=== PATIENT | female | born 1940 | race Caucasian/White ===

== ENCOUNTER 2016-08-01 08:22 | Emergency (ER) | payer MEDICARE, OTHER ==
--- NOTE | 2016-08-01 09:07 | ERNOTE ---
Lower Extremity HPI - General Lower Extremities Pain: knee: left Source: patient Exam Limitations: dementia - Immun/Allergies/Home Medications Immunizations: IMMUNIZATION HX Immunizations Up to Date Yes History of Influenza Vaccine No Hx Pneumococcal Vaccination No Allergies/Adverse Reactions: Allergies Allergy/AdvReac Type Severity Reaction Status Date / Time Sulfa (Sulfonamide Allergy Unknown Verified 08/01/16 08:38 Antibiotics) [Sulfa(Sulfonamide Antibiotics)] cortisone [Cortisone] AdvReac Mild GI UPSET, Verified 08/01/16 08:38 N/V Iodinated Contrast Media - AdvReac Mild GI UPSET Verified 08/01/16 08:38 IV Dye [IV Dye, Iodine Containing Contrast ] iodine AdvReac Mild GI UPSET Verified 08/01/16 08:38 lisinopril AdvReac Mild Cough Verified 08/01/16 08:38 Penicillins AdvReac Mild RASH Verified 08/01/16 08:38 Home Medications: HOME MEDICATIONS Levothyroxine Sodium [Tirosint] 25 mcg PO Q48H 04/20/13 [Last Taken 05/21/14] Losartan Potassium [Cozaar] 50 mg PO BID 04/20/13 [Last Taken 05/21/14] Metoprolol Succinate [Toprol Xl] 100 mg PO DAILY 04/20/13 [Last Taken 05/21/14] Clonidine HCl 0.3 mg TD Q7D 11/24/13 [Last Taken 05/21/14] Escitalopram Oxalate [Lexapro] 10 mg PO DAILY 04/28/14 [Last Taken 05/21/14] amLODIPine BESYLATE [Norvasc] 10 mg PO DAILY #30 tab 06/21/14 [Last Taken Unknown] Cholecalciferol (Vitamin D3) [Vitamin D3] 1,000 unit PO DAILY 05/17/16 [Last Taken Unknown] Memantine HCl [Namenda Xr] 28 mg PO DAILY 05/17/16 [Last Taken Unknown] Omeprazole [Prilosec] 20 mg PO DAILY #30 cap 05/17/16 [Last Taken Unknown] - History of Present Illness Narrative: Patient states that she has chronic hip and knee pain for years, has surgery on both knees (thinks she had both replaced). She denies any recent injury but started to have pain in her left knee yesterday. She states three times that her daughter is a nurse and thought the knee was more swollen and gave a her a brace that seemed to help the pain but then the pain got worse again this morning. She has not taken any medication for pain yet Date (Duration): 07/31/16 Occurred: yesterday Method of Injury: Reports: no apparent injury Associated Symptoms: Denies: snapping, popping sensation, headache, weakness, sensory loss Other Injuries: Reports: none Review of Systems - Review of Systems Constitutional: Absent: recent illness, fever ENT: Absent: nose congestion Respiratory: Absent: shortness of breath, cough Cardiology: Absent: chest pain Gastrointestinal/Abdominal: Absent: nausea, vomiting, abdominal pain Skin: Absent: rash Neurological: Absent: headache, weakness, numbness - Patient's Past Medical History Patient History - Medical: Anxiety, Dementia, Renal Disease, UTI'S Patient History - Cardiac/Respiratory: Hypertension Patient History - Cancer: Kidney Patient History - Surgical Procedures: Cataracts, Cholecystectomy, Hysterectomy , Total Hip Replacement, Total Knee Replacement, T & A, Other - Social History Living Situations: home Smoking Status: Never smoker Alcohol Use: none Drug Use: none Physical Exam - Physical Exam General Appearance: Present: wd/wn, alert, no apparent distress, obese Respiratory: Present: no respiratory distress, normal breath sounds, lungs clear Cardiovascular/Chest: Present: regular rate, rhythm, no murmur Extremity Exam: Present: other - left knee, pain on ROM, limited exam due to obesity, no ligament instability, mild effusion Neurological Exam: Present: alert, oriented, normal mood/affect, no motor/ sensory deficits Skin Exam: Present: normal color, warm/dry ED Progress - Vital Signs Patient's Vital Signs:: I have reviewed the patient's vital signs. Vital Signs: Vital Signs 08/01/16 08:29 Temperature 36.6 C Pulse Rate 72 Respiratory 16 Rate Blood Pressure 137/86 O2 Sat by Pulse 96 Oximetry - X-Ray X-Ray #1 X-Ray: knee - no fracture, DJD, mild effusion Interpretation: Reviewed by me - Progress/Reassessment Chief Complaint: Lower Extremity Pain/ Injury Progress Note-Subjective: 08/01/16 10:35 explained results, reapplied neoprene knee brace Departure Clinical Impression: Knee pain, left Qualifiers: Chronicity: acute Qualified Code(s): M25.562 - Pain in left knee Osteoarthritis Qualifiers: Osteoarthritis location: knee Osteoarthritis type: unspecified Laterality: left Qualified Code(s): M17.12 - Unilateral primary osteoarthritis, left knee - Departure Disposition: Home self-care Condition: Good Instructions: Arthritis, [id number] Additional Instructions: take tylenol as needed for pain wear the knee brace as needed if you pain does not improve over the next few days call the orthopedic office for follow up Referrals: Ethan Nascimento MD [Staff Physician] -
[2016-08-01] MEDS ORDERED: ACETAMINOPHEN 325 MG TABLET ONE (10:18)
[2016-08-01] MEDS ORDERED: ACETAMINOPHEN 325 MG TABLET PO ONE (10:19)
[2016-08-01 10:57] VITALS: BP 133/71
== END 2016-08-01 10:56 | disposition home or self-care (01) ==
LOC: ER 08:22
DX: M25.562 Pain in left knee (principal); M17.12 Unilateral primary osteoarthritis, left knee; Z85.528 Personal history of other malignant neoplasm of kidney; F03.90 Unspecified dementia, unspecified severity, without behavioral disturbance, psychotic disturbance, mood disturbance, and anxiety; I10 Essential (primary) hypertension; F41.9 Anxiety disorder, unspecified; Z87.440 Personal history of urinary (tract) infections

== ENCOUNTER 2016-09-19 05:57 | Inpatient (IN) | payer MEDICARE, OTHER ==
[2016-09-19] MEDS ORDERED: MORPHINE SULFATE 15 MG TABLET.SA PO PRN (06:00)
[2016-09-19] MEDS ORDERED: RINGERS SOLUTION,LACTATED 1,000 ML IV PRN (06:00)
[2016-09-19] MEDS ORDERED: ceFAZolin SODIUM 1 GM VIAL IV PRN (06:00)
[2016-09-19] MEDS ORDERED: TRANEXAMIC ACID 1,000 MG in NORMAL SALINE 100 ML IV PRN (06:00)
--- OUTSIDE RECORDS SUMMARY | 2016-09-19 06:00 | XMS REPORT | Continuity of Care Document ---
:1940 Author Organization [facility] ([facility]) Address [address] [place] [address] Phone [phone] Care Team Providers Name Role Phone Grisel Humphreys Primary Care Provider [phone] Source Comments This disclosure is being made pursuant to the Care Everywhere program, applicable federal and state laws, and may not contain all informaitonavailable regarding this patient.[facility] ([facility]) Active Allergies and Adverse Reactions Allergen Noted Date Severity Reactions Comments Penicillin G 10/08/2009 Pruritus Sulfa (Sulfonamide Antibiotics) 03/03/2010 Pruritus Current Medications Prescription Sig. Disp. Refills Start Date End Date Status ESCITALOPRAM OXALATE Take by mouth. Active (LEXAPRO PO) AMLODIPINE BESYLATE Take by mouth. Active (NORVASC PO) LORAZEPAM (ATIVAN PO) Take by mouth as Active needed. LANSOPRAZOLE (PREVACID PO) Take by mouth as Active needed. Active Problems Problem Noted Date Macular degeneration 10/08/2009 Overview: Formatting of this note may be different from the original. Right Eye Left Eye Time To Recurrence: Time To Recurrence: Date VA (D cc) CMT Status Procedure VA (D cc) CMT Status Procedure Cmts 10/08/2009 Avastin #[id number] 11/13/2009 2028 -1+3 219 20/44 -1 290 Avastin # [id number] 12/17/2009 2025 - 2 20/50 -2 389 Avastin #[id number] 01/08/2010 2022 20/44 -2 284 Avastin #[id number] 03/03/2010 20/25 +1 20/60 +2 354 Lucentis #[id number] 04/14/2010 20/20 -2 20/50 -1 +2 407 Lucentis #[id number] 05/12/2010 20/30 20/50 363 Lucentis #[id number] 06/10/1025-2 40-3 384 Lucentis #[id number] 10/13/2010 [id number] 11/12/2010 -1 +2 -1 [id number] 12/10/201056 299 avastin -2 462 [id number] 01/11/2011-2 256 avastin 462 Avastin Feb 2011 to present Avastin - given in [place] Avastin - given in [place] 10/25/11-3 [id number] Avastin--[id number] Social History Tobacco Use Types Packs/Day Years Used Date Never Smoker Smokeless Tobacco: Never Used Alcohol Use Drinks/Week oz/Week Comments No Last Filed Vital Signs Vital Sign Reading Time Taken Blood Pressure 135/66 11/04/2008 9:14 AM CDT Pulse 50 11/04/2008 9:14 AM CDT Temperature 36 C (96.8 F) 11/04/2008 9:14 AM CDT Respiratory Rate 18 04/08/2004 9:38 AM CDT Height 1.67 m (5' 5.74") 11/04/2008 9:14 AM CDT Weight 82.496 kg (181 lb 13.9 oz) 11/04/2008 9:14 AM CDT Body Mass Index 29.58 11/04/2008 9:14 AM CDT Oxygen Saturation - - Plan of Care Health Maintenance Due Date Last Done Comments Hepatitis B Vaccine (1 of 3 - Primary Series) 1940 Tdap Vaccine 1949 Lipid Disorder Screening 1956 Td Vaccine 1956 Mammogram 1978 Colonoscopy 03/19/1988 Zoster Vaccine 1998 Osteoporosis Screening (DXA Bone Density) 2003 Pneumococcal Vaccine (1 of 2 - PCV13) 2003 Influenza Vaccine: Seasonal (#1) 02/08/2016 Results from Last 3 Months Not on file
[2016-09-19] MEDS: METOPROLOL SUCCINATE 100 MG TABLET.SA PO SCH ×2 (07:30→08:55)
[2016-09-19] MEDS ORDERED: RINGERS SOLUTION,LACTATED 1,000 ML IV ONE ×3 (08:47→09:41)
[2016-09-19] MEDS: ROPIVACAINE HCL/PF 100 MG, EPINEPHrine 0.2 MG in NORMAL SALINE 100 ML IJ PRN ×2 (08:48→09:41)
[2016-09-19] MEDS ORDERED: PROMETHAZINE HCL 5 MG in DEXTROSE 5 % IN WATER 50 ML IV PRN ×2 (10:05)
[2016-09-19] MEDS ORDERED: ACETAMINOPHEN 500 MG TABLET PO PRN (10:05)
[2016-09-19] MEDS ORDERED: DEXTROSE 5%-LACTATED RINGERS 1,000 ML IV PRN (10:05)
[2016-09-19] MEDS ORDERED: diphenhydrAMINE HCL 50 MG/ML VIAL IV PRN (10:05)
[2016-09-19] MEDS ORDERED: ZOLPIDEM TARTRATE 5 MG TABLET PO PRN (10:05)
[2016-09-19] MEDS ORDERED: MAGNESIUM HYDROXIDE 30 ML UDC PO PRN (10:05)
[2016-09-19] MEDS ORDERED: MAG HYDROX/ALUMINUM HYD/SIMETH 30 ML UDC PO PRN (10:05)
[2016-09-19] MEDS ORDERED: LORazepam 0.5 MG TABLET PO PRN (10:08)
--- NOTE | 2016-09-19 10:14 | OR ---
Operative Report - Dictated Report Narrative: Date: 09/19/2016 Preoperative diagnosis: Left Knee degenerative joint disease. Postoperative diagnosis: Left Knee degenerative joint disease. Procedure: Left Total knee arthroplasty. Surgeon: Konrad Kunz M.D. Bad Credit Collector: Homero Bergeron PA-C Anesthesia: General With regional block and local periarticular joint injection. Complications: None Specimens: Bone for disposal. Estimated blood loss: Minimal. Tourniquet time: 90 Minutes at 325 millimeters of mercury. Retained implants: Depuy Attune size 6 left lugged cemented posterior stabilized femoral component. Size 5 fixed-bearing cemented tibial platform. 6 by 8 millimeter posterior stabilized cross-linked tibial insert. 35 millimeter medialized patella button. Indications: Mrs. Ashley is a 76-year-old female who has had long-standing left knee valgus arthrosis. This patient was followed in my clinic for period of time with significant complaints of left knee pain consistent with arthritic changes. They had failed conservative measures including, but not limited to, activity modification, passage of time, medications, and other conservative measures. Patient wished to proceed with surgical treatment. The risks, benefits, and alternatives were discussed in clinic. The risks of , blood clots, bleeding, infection, nerve/tendon blood vessel/ injury, malposition of components, intraoperative fracture, postoperative limited range of motion, persistent pain, failure of components, and need for additional procedures. Patient wished to proceed consent was obtained after answering all questions. Procedure: After marking the correct extremity on the floor, the patient was taken to the operating room. A timeout was performed. IV antibiotics consisting of Ancef were administered prior to the procedure. A regional followed by general anesthetic was induced by anesthesia on the operative table with all bony prominences well-padded. Saldaña catheter was placed, and a bump was placed under the operative side buttock. SCDs and ZHANG hose were utilized on the nonoperative leg. A well-padded tourniquet was applied to the operative thigh. The operative leg was then pre-scrubbed with david de la o prepped, and draped in a standard sterile fashion. After exsanguinating the extremity with an Esmarch bandage, the tourniquet was inflated. After marking out the anterior knee for standard incision centered over the patella, the skin was incised and dissected down to the joint retinaculum. The joint retinaculum was marked out as well as the horizontal axis of the patella, and a standard medial parapatellar arthrotomy was then made. The most proximal aspect of the quadriceps tendon and the patella tendon insertion were protected from release. A partial synovectomy was performed as well as a resection of the infrapatellar fat pad. The distal femoral fat pad proximal to the trochlea was also resected using cautery. The soft tissues were elevated off the medial aspect of the proximal tibia using a Echols elevator ensuring that we did not transect the medial collateral ligament. Upon initial evaluation range of motion was approximately 0 degrees to 130 degrees of flexion. There were signs of advanced arthrosis in the medial, lateral, patellofemoral joint spaces. There were large marginal osteophytes which were removed with a rongeur. The knee was hyperflexed and the patella was tucked laterally. Protecting the surrounding soft tissues with Homans, an entry drill was placed down the femoral canal using Whitesides line for guidance into the entry point. The intramedullary femoral alignment malik was utilized in order to cut the distal femur in 6 degrees of valgus resecting 10 millimeters of bone. Next the distal femur was sized to a size 6. A posterior referencing guide was utilized to place the distal femoral cutting block in 3 degrees of external rotation. This was pinned into place. The rotation was confirmed both visually and based on anatomic landmarks. The 4 in 1 cutting jig of the appropriate size was utilized in order to make all bony cuts. The angle wing was used to ensure no notching. Retractors were utilized in order to protect surrounding soft tissues. This cut did not result in any excessive notching. We then cut the box centered over the distal femur. This allowed for resection of the anterior and posterior cruciate ligaments. I then turned my attention to the preparation of the tibia. Using an extra medullary tibial alignment malik, 8 millimeters of bone was resected off the medial articular surface. This was made perpendicular to the mechanical axis of the joint with the alignment malik centered over the ankle mortise. The alignment malik was checked and was noted to be parallel to the mechanical axis, centered over the medial one third of the tibial tubercle, paralleling the anterior surface of the tibia. We then turned our attention to the remaining meniscus and soft tissues. These were removed while protecting the surrounding ligaments and soft tissues. The marginal osteophytes off the anterior, posterior, medial, lateral aspects of the femur and tibia were removed. The tibia was sized out to a size 5. Next the tibia was drilled and punched in an externally rotated position. Next the trial femur and a series of tibial inserts were utilized in order to allow for full extension and maximal flexion. It was found that a 8 millimeter insert gave the best range of motion and stability at multiple flexion points as well as at full extension there was less than 2 mm of gapping both medially and laterally. There is minimal anterior translation with the knee at 90 degrees of flexion and no signs of being able to dislocate the knee. The patella was then prepared. The initial thickness was 21 millimeters. This was reamed down to 13 millimeters parallel to the anterior surface of the patella. It was sized out to a size 35 medialized patella button. This was then drilled and trialed. Without any medial restraint the patella tracked appropriately and did not sublux or dislocate. At this point, it was felt these were the appropriate sized implants, and all trials were removed. The standard periarticular joint injection consisting of ropivacaine, and epinephrine were injected into the periarticular joint tissues. The bony surfaces were thoroughly irrigated with a pulsatile-suction saline irrigation device. A bone plug from the prior resected anterior chamfer cut was placed into the drill hole at the distal femur. The bony surfaces were then dried in preparation for placement of the implants. The cement was vacuum mixed per the therapeutic recreation leader's instructions. The cement was placed on the dry bony surfaces and posterior aspect of the implants. The implants were impacted into place, removing all extruded cement. At this point anesthesia administered tranexamic acid per protocol intravenously. The knee was placed in extension with axial loading with the trial insert while the cement cured. Once the cement cured, all remaining extruded cement was removed. The knee was placed through a range of motion with the trial insert to ensure appropriate range of motion and stability. Final range of motion was approximately 0 to 120 degrees. The knee was again thoroughly irrigated with pulsatile saline lavage. The final polyethylene insert was then impacted into place ensuring no retained soft tissues. The remaining periarticular joint injection was injected. A medium Hemovac drain was placed exiting superior laterally. The knee was then placed over a triangle and the arthrotomy was closed with interrupted #1 Vicryl after thoroughly irrigating the joint. The deep and subcutaneous tissues were closed with interrupted oh and 3-0 Vicryl respectively. Skin was closed with a running subcutaneous 3-0 Monocryl and prineo dressing. 4 x 4's, ABD, Sof-Rol, and a full leg Duane wrap were applied. All sponge, needle, blade, and instrument counts were correct prior to closing the wounds. Postoperative condition: The patient was awoken and transferred to the postanesthesia care unit in stable condition. Plan is to be admitted to the inpatient medical/surgical floor postoperatively for 24 hours of IV antibiotics , physical therapy, occupational therapy, and medical comanagement. Patient will be weightbearing as tolerated with range of motion as tolerated. DVT prophylaxis will be with SCDs, ZHANG hose, and pharmacological anticoagulation. Anticipated hospital stay is approximately 2-4 days.
[2016-09-19] MEDS ORDERED: LEVOTHYROXINE SODIUM 25 MCG PO SCH (10:15)
[2016-09-19] MEDS: HYDROmorphone HCL 1 MG/ML DISP.SYRIN IV PRN (12:05)
[2016-09-19] MEDS: ceFAZolin SODIUM 1 GM in DEXTROSE 5 % IN WATER 100 ML IV SCH ×4 (13:25→20:56)
[2016-09-19] MEDS: oxyCODONE HCL/ACETAMINOPHEN 1 TAB TABLET PO PRN (14:37)
[2016-09-19] MEDS: LEVOTHYROXINE SODIUM 25 MCG TABLET PO SCH (14:37)
[2016-09-19] MEDS ORDERED: cloNIDine 0.3 MG PATCH.TDWK TD SCH (15:00)
[2016-09-19] MEDS: ONDANSETRON HCL/PF 2 MG/ML VIAL IV PRN (15:13)
[2016-09-19] MEDS: LOSARTAN POTASSIUM 50 MG TABLET PO SCH (21:13)
[2016-09-19] MEDS: MORPHINE SULFATE 15 MG TABLET.SA PO SCH (21:14)
[2016-09-19] MEDS: SENNOSIDES/DOCUSATE SODIUM 1 TAB TABLET PO SCH (21:16)
[2016-09-19] MEDS: MEMANTINE HCL 10 MG TABLET PO SCH (21:16)
[2016-09-20] MEDS: HYDROmorphone HCL 1 MG/ML DISP.SYRIN IV PRN ×3 (00:57→14:22)
[2016-09-20] MEDS: oxyCODONE HCL/ACETAMINOPHEN 1 TAB TABLET PO PRN ×3 (03:29→16:43)
[2016-09-20 05:54] LABS: Hematocrit 36.9 % (37.0-47.0); Hemoglobin 12.1 gm/dL (12.5-16.0); Mean Cell Volume 85.4 fl (78-100); Mean Corpuscular Hgb Conc 32.8 g/dl (32-36); Mean Platelet Volume 10.1 fl (6.0-9.5); Platelet Count 200 K/mm3 (150-450); Red Blood Count 4.32 M/mm3 (4.2-5.4); Red Cell Distribution Width 14.8 % (11.5-14.0); White Blood Count 8.1 K/mm3 (4.0-10.5)
[2016-09-20 06:05] LABS: Anion Gap 11.8 mmol/L (6.8-13.8); BUN/Creatinine Ratio 11.4 (9.0-21.6); Calcium * 8.1 mg/dL (7.9-10.9); Carbon Dioxide 28.2 mmol/L (24-32.6)
[2016-09-20] MEDS: ceFAZolin SODIUM 1 GM in DEXTROSE 5 % IN WATER 100 ML IV SCH ×2 (07:05)
[2016-09-20] MEDS: ONDANSETRON HCL/PF 2 MG/ML VIAL IV PRN (07:36)
--- NOTE | 2016-09-20 08:06 | PN ---
Subjective - Date and Time Seen Date: 09/20/16 Time: 08:02 Subjective Narrative: Subjective: Reports nausea and vomiting. Was able to get to the chair with therapy. Pain is well-controlled. Voiding without any complications. Tolerating by mouth intake. Denies calf pain. Slept well. Physical exam: Alert and oriented to person, place and time Left lower Extremity: Palpable dorsalis pedis pulse. Sensation grossly intact to light touch. Dressings clean and dry. Able to flex and extend ankle and toes. No excessive drainage. Calf and thigh are soft and nontender. Assessment: Postop day 1 status post left total knee arthroplasty. Plan: Continue with physical and occupational therapy weightbearing as tolerated. Continue with anticoagulation. 24 hours postoperative prophylactic antibiotics. Pain control with goal to rely on oral medications. Continue bowel regimen. Will need 6 weeks with walker or assitive device to protect joint while ambulating during the recovery process. Discharge planning - her plan is to come to a nursing facility for additional therapy when ready. Discontinue drain and Saldaña catheter. Repeat labs in a.m. Objective - Vitals Vitals: Last Vital Signs Temp 37.5 C 09/20/16 06:45 Pulse 64 09/20/16 06:45 Resp 16 09/20/16 06:45 BP 148/75 09/20/16 06:45 Pulse Ox 95 09/20/16 06:45 - Abnormal Lab Findings Abnormal Lab Findings: Abnormal Lab Results 09/20/16 09/20/16 Range/Units 05:20 05:20 Hgb 12.1 L (12.5-16.0) gm/dL Hct 36.9 L (37.0-47.0) % RDW 14.8 H (11.5-14.0) % MPV 10.1 H (6.0-9.5) fl Creatinine 1.67 H (0.4-1.4) mg/dL Est GFR (Non-Af Amer) 32 L (60-130) mL/min Cauti Physician Documentation - Urinary Catheter Management Urethral (Saldaña) Date of Insertion: 09/19/16 Time of Insertion: 10:00 Date of Removal: 09/20/16 Time of Removal: 06:40 Assessment/Plan - Problems/Diagnosis (1) Acute blood loss anemia Problem: Acute (2) S/P total knee arthroplasty Problem: Acute (3) Accelerated essential hypertension Problem: Chronic (4) Chronic kidney disease, stage IV (severe) Problem: Chronic (5) Migraine Problem: Chronic (6) Osteoarthritis Problem: Chronic (7) Reflux esophagitis Problem: Chronic (8) GERD (gastroesophageal reflux disease) Problem: Acute (9) Hypertension Problem: Acute (10) Hyperlipidemia Problem: Acute
[2016-09-20] MEDS: ESCITALOPRAM OXALATE 10 MG TAB PO SCH (08:32)
[2016-09-20] MEDS: MEMANTINE HCL 10 MG TABLET PO SCH ×2 (08:32→20:37)
[2016-09-20] MEDS: amLODIPine BESYLATE 10 MG TABLET PO SCH (08:46)
[2016-09-20] MEDS: METOPROLOL SUCCINATE 100 MG TABLET.SA PO SCH (08:47)
[2016-09-20] MEDS: LOSARTAN POTASSIUM 50 MG TABLET PO SCH ×2 (08:52→20:36)
[2016-09-20] MEDS: ENOXAPARIN SODIUM 30 MG/0.3 ML SYRG SC SCH (09:04)
[2016-09-20] MEDS: MORPHINE SULFATE 15 MG TABLET.SA PO SCH ×2 (09:08→20:34)
[2016-09-20] MEDS: SENNOSIDES/DOCUSATE SODIUM 1 TAB TABLET PO SCH (20:35)
[2016-09-21] MEDS: oxyCODONE HCL/ACETAMINOPHEN 1 TAB TABLET PO PRN ×2 (00:31→07:54)
[2016-09-21 05:46] LABS: Hematocrit 36.5 % (37.0-47.0); Hemoglobin 11.9 gm/dL (12.5-16.0); Mean Cell Volume 85.9 fl (78-100); Mean Corpuscular Hgb Conc 32.6 g/dl (32-36); Mean Platelet Volume 10.2 fl (6.0-9.5); Platelet Count 213 K/mm3 (150-450); Red Blood Count 4.25 M/mm3 (4.2-5.4); White Blood Count 10.8 K/mm3 (4.0-10.5)
[2016-09-21 05:54] LABS: Anion Gap 10.9 mmol/L (6.8-13.8); BUN/Creatinine Ratio 10.5 (9.0-21.6); Calcium * 8.1 mg/dL (7.9-10.9); Carbon Dioxide 27.3 mmol/L (24-32.6); Estimated Creat Clear 25.2; Potassium 4.2 mmol/L (3.4-4.6)
[2016-09-21] MEDS: amLODIPine BESYLATE 10 MG TABLET PO SCH (08:41)
[2016-09-21] MEDS: LOSARTAN POTASSIUM 50 MG TABLET PO SCH ×2 (08:41→21:09)
[2016-09-21] MEDS: ESCITALOPRAM OXALATE 10 MG TAB PO SCH (08:41)
[2016-09-21] MEDS: ENOXAPARIN SODIUM 30 MG/0.3 ML SYRG SC SCH (08:41)
[2016-09-21] MEDS: METOPROLOL SUCCINATE 100 MG TABLET.SA PO SCH (08:41)
[2016-09-21] MEDS: MEMANTINE HCL 10 MG TABLET PO SCH ×2 (08:41→21:09)
[2016-09-21] MEDS: MORPHINE SULFATE 15 MG TABLET.SA PO SCH ×2 (08:43→21:08)
--- NOTE | 2016-09-21 11:29 | PN ---
Subjective - Date and Time Seen Date: 09/21/16 Time: 11:25 Subjective Narrative: Patient reports nausea much better. Reports pain controlled. Was able to ambulate halls with PT earlier and feels is doing better. No complaints. Objective Objective Narrative: Dressings removed. Wound well approximated. No drainage or active bleeding. Calf supple. N/V intact. - Vitals Vitals: Last Vital Signs Temp 37.6 C H 09/21/16 10:48 Pulse 75 09/21/16 10:48 Resp 20 09/21/16 10:48 BP 124/56 09/21/16 10:48 Pulse Ox 90 09/21/16 10:48 - Abnormal Lab Findings Abnormal Lab Findings: Abnormal Lab Results 09/21/16 09/21/16 Range/Units 05:23 05:23 WBC 10.8 H D (4.0-10.5) K/mm3 Hgb 11.9 L (12.5-16.0) gm/dL Hct 36.5 L (37.0-47.0) % RDW 15.0 H (11.5-14.0) % MPV 10.2 H (6.0-9.5) fl Creatinine 1.72 H (0.4-1.4) mg/dL Est GFR (Non-Af Amer) 30 L (60-130) mL/min - Exam Constitutional: Present: Alert, Oriented x3, Cooperative, No distress Cauti Physician Documentation - Urinary Catheter Management Urethral (Saldaña) Date of Insertion: 09/19/16 Time of Insertion: 10:00 Date of Removal: 09/20/16 Time of Removal: 06:40 Assessment/Plan - Problems/Diagnosis (1) Acute blood loss anemia Problem: Acute Narrative: stable, asymptomatic (2) GERD (gastroesophageal reflux disease) Problem: Chronic (3) Hyperlipidemia Problem: Chronic (4) Hypertension Problem: Chronic (5) S/P total knee arthroplasty Problem: Acute Narrative: PT, anticoagulation, pain control, plan discharge to group home tomorrow (6) Knee pain, left Problem: Acute Qualifiers: Chronicity: acute Qualified Code(s): M25.562 - Pain in left knee
[2016-09-21] MEDS: LEVOTHYROXINE SODIUM 25 MCG TABLET PO SCH (17:07)
[2016-09-21] MEDS: SENNOSIDES/DOCUSATE SODIUM 1 TAB TABLET PO SCH (21:08)
[2016-09-22] MEDS: oxyCODONE HCL/ACETAMINOPHEN 1 TAB TABLET PO PRN (06:42)
[2016-09-22 07:39] VITALS: BP 131/62
--- NOTE | 2016-09-22 07:55 | DS ---
(1) Acute blood loss anemia Problem: Acute (2) S/P total knee arthroplasty Problem: Acute Qualifiers: Laterality: right Qualified Code(s): Z96.651 - Presence of right artificial knee joint (3) Accelerated essential hypertension Problem: Chronic (4) Chronic kidney disease, stage IV (severe) Problem: Chronic (5) Migraine Problem: Chronic (6) Osteoarthritis Problem: Chronic (7) Reflux esophagitis Problem: Chronic (8) GERD (gastroesophageal reflux disease) Problem: Chronic (9) Hypertension Problem: Chronic (10) Hyperlipidemia Problem: Chronic Description of Stay: Mrs. Ashley was admitted to the floor after undergoing right total knee arthroplasty. Tolerated this well. Was admitted to the floor postoperatively for 24 hours of IV antibiotics, pain control, medical comanagement, and occupational and physical therapy. OT and PT were consulted to assist with activities of daily living and ambulation. Was made weightbearing as tolerated with range of motion as tolerated. Pain was initially controlled with IV regimen. This was transitioned to oral once tolerating a by mouth intake. Was resumed on home diet and medications. Had a Saldaña catheter inserted and the operating room which was discontinued on postoperative day 1. A drain was placed intraoperatively into the knee which was discontinued on postoperative day 1. Lovenox SCD and ZHANG hose were utilized for DVT prophylaxis. Vital signs remained stable to the hospital course. Serial labs were obtained which showed a final hemoglobin of 11.9 grams. BMP was reviewed and was stable. Physical examination throughout the hospital course showed an extremity that had sensation that was intact to light touch, palpable pulses, a benign wound, motor intact to the toes, ankle, and knee. Knee range of motion was approximately 0 degrees to 70 degrees. due to her limited mobility and limited assistance at home she is being transferred to the [facility] for continued physical therapy. Instructions: Continue with weightbearing as tolerated and range of motion as tolerated. Okay to shower and get wound wet. Do not soak in a pool or tub. Cover the drain with dry gauze and tape only if draining. If there is any drainage contact the orthopedic office. Do not use any petroleum based products on the wound. Cover with dry gauze and tape. Change every 2-3 days as needed. Continue with physical therapy. Resume home diet. Report any fever over 101.5 Fahrenheit, uncontrolled pain, increased drainage, foul odor of drainage, new or increased calf pain or shortness of breath, or any other significant complaints. A 325mg dialy aspirin will be started after finishing anticoagulation if not allergic. Continue with ZHANG hose on the operative extremity until instructed otherwise. No driving until instructed otherwise. Follow up in approximately 10-14 days. Procedures Performed: see notes below List Procedures: Right total knee arthroplasty Discharge Disposition: [facility] Disposition: [facility] Condition: Good Discharge Activity: Activity as tolerated, Weight bearing Discharge Diet: General/regular food Discharge Level of Care:: [facility] Therapy: Physicial Therapy, Occupation Therapy Referrals: Grisel Humphreys MD [Primary Care Provider] - Additional Patient Instructions (free text): Follow-up in the office with Dr. Kunz on 10-04-16@1:45pm. Prescriptions (Any new or edited meds): Enoxaparin Sodium [Lovenox] 30 mg SC Q24H #7 disp.syrin Morphine Sulfate [Ms Contin] 15 mg PO Q12H #20 tablet.sa Sennosides/Docusate Sodium [Senokot-S] 2 tab PO HS #60 tablet oxyCODONE HCL/ACETAMINOPHEN [Percocet 5 MG/325 MG] 2 tab PO Q4H PRN #90 tablet PRN Reason: Moderate Pain Complete Home Medications List: Complete Home Medication List: Levothyroxine Sodium [Tirosint] 25 mcg PO Q2D 04/20/13 Losartan Potassium [Cozaar] 50 mg PO BID 04/20/13 Metoprolol Succinate [Toprol Xl] 100 mg PO DAILY 04/20/13 Escitalopram Oxalate [Lexapro] 10 mg PO DAILY 04/28/14 amLODIPine BESYLATE [Norvasc] 10 mg PO DAILY #30 tab 06/21/14 Memantine HCl [Namenda Xr] 28 mg PO DAILY 05/17/16 LORazepam [Ativan] 0.5 mg PO Q6H PRN 09/08/16 cloNIDine [Catapres-Tts 3] 1 each TD Q7D 09/08/16 Enoxaparin Sodium [Lovenox] 30 mg SC Q24H #7 disp.syrin 09/22/16 Morphine Sulfate [Ms Contin] 15 mg PO Q12H #20 tablet.sa 09/22/16 Sennosides/Docusate Sodium [Senokot-S] 2 tab PO HS #60 tablet 09/22/16 oxyCODONE HCL/ACETAMINOPHEN [Percocet 5 MG/325 MG] 2 tab PO Q4H PRN #90 tablet 09/22/16
[2016-09-22] MEDS: MORPHINE SULFATE 15 MG TABLET.SA PO SCH (08:35)
[2016-09-22] MEDS: MEMANTINE HCL 10 MG TABLET PO SCH (08:36)
[2016-09-22] MEDS: METOPROLOL SUCCINATE 100 MG TABLET.SA PO SCH (08:36)
[2016-09-22] MEDS: ENOXAPARIN SODIUM 30 MG/0.3 ML SYRG SC SCH (08:36)
[2016-09-22] MEDS: ESCITALOPRAM OXALATE 10 MG TAB PO SCH (08:36)
[2016-09-22] MEDS: LOSARTAN POTASSIUM 50 MG TABLET PO SCH (08:36)
[2016-09-22] MEDS: amLODIPine BESYLATE 10 MG TABLET PO SCH (08:36)
== END 2016-09-22 11:42 | DRG 470 ==
LOC: MS 05:57
PROVIDERS: ADMIT Orthopaedic Surgery; ATTEND Orthopaedic Surgery
PROC: 0SRD0J9 Replacement of Left Knee Joint with Synthetic Substitute, Cemented, Open Approach (ICD-10-PCS; principal; 2016-09-19 08:00)
DX: M17.0 Bilateral primary osteoarthritis of knee (principal); N18.4 Chronic kidney disease, stage 4 (severe); D62 Acute posthemorrhagic anemia; I12.9 Hypertensive chronic kidney disease with stage 1 through stage 4 chronic kidney disease, or unspecified chronic kidney disease; K21.9 Gastro-esophageal reflux disease without esophagitis; E78.5 Hyperlipidemia, unspecified; Z85.528 Personal history of other malignant neoplasm of kidney; Z90.5 Acquired absence of kidney